=== PATIENT | female | born 1955 | race Caucasian/White ===

== ENCOUNTER 2018-12-14 12:29 | Emergency (ER) | payer MEDICARE, OTHER ==
[~2018-12-14] VITALS: Ht 170.2 cm; Wt 65.9 kg
--- NOTE | 2018-12-14 12:30 | NUR ---
BS 82PT BIB [facility]. PER EMS, PT WAS DRIVING FROM [place] [employer] TO SEE HER (WHO WAS ADMITTED TO THIS HOSPITAL YESTERDAY FOR PACEMAKER PLACEMENT), WHEN SHE EXPERIENCED DIZZINESS ONSET AROUND 1100. PT PULLED OVER TO THE SIDE OF THE ROAD BUT THE DIZZINESS NEVER SUBSIDED SO SHE CALLED EMS. PT STATES HER SYMPTOMS MIGHT BE STRESS-RELATED. VS PER EMS: 160/80, HR 80s SR, 94% ON RA, BS 84. 12-LEAD UNREMARKABLE. PT ARRIVES TO ED A&OX4. POC RV'WD WITH HER. Addendum: 12/14/18 at 1332 by ANA PT WAS DRIVING FROM [place] TO [facility]. STATES SHE FELT LIKE SHE MIGHT PASS OUT.
--- NOTE | 2018-12-14 12:44 | NUR ---
PT AMBULATED TO BR WITHOUT DIFFICULTY. TO XR VIA WC AT THIS TIME.
[2018-12-14] MEDS ORDERED: ESTR0.5T PO (12:53)
[2018-12-14 13:09] LABS: ALANINE AMINOTRANSFERASE 25 U/L (12-78); ALBUMIN 4.1 g/dL (3.4-5.0); ANION GAP 7 mmol/L (5-15); CHLORIDE 111 mmol/L (98-107)
[2018-12-14 13:14] LABS: ALKALINE PHOSPHATASE 63 U/L (45-117); BASOPHILS # (AUTO) 0.03 x10^3/uL (0-0.1); BASOPHILS % (AUTO) 0 % (0-1); BILIRUBIN,TOTAL 0.3 mg/dL (0.2-1.0); EOSINOPHILS # (AUTO) 0.03 x10^3/uL (0-0.4); EOSINOPHILS % (AUTO) 0 % (1-7); LYMPHOCYTES # (AUTO) 1.18 x10^3/uL (1-3.4); LYMPHOCYTES % (AUTO) 12 % (22-44); MD NO; MEAN CORPUSCULAR HEMOGLOBIN 30.7 pg (27.0-34.8); MEAN CORPUSCULAR HGB CONC 33.7 g/dL (32.4-35.8); MEAN CORPUSCULAR VOLUME 91.1 fL (80-100); MEAN PLATELET VOLUME 9.9 fL (7.4-10.4); MONOCYTES # (AUTO) 0.92 x10^3/uL (0.2-0.8); MONOCYTES % (AUTO) 9 % (2-9); NEUTROPHILS # (AUTO) 7.57 x10^3/uL (1.8-6.8); NEUTROPHILS % (AUTO) 78 % (42-75); PLATELET COUNT 288 x10^3/uL (130-400); RED BLOOD COUNT 4.94 x10^6/uL (3.82-5.3); RED CELL DISTRIBUTION WIDTH 13.7 % (9.6-15.2); TOTAL PROTEIN 7.8 g/dL (6.4-8.2); TROPONIN I < 0.015 ng/mL (0.000-0.045)
[2018-12-14 13:30] VITALS: BP 132/81
--- NOTE | 2018-12-14 13:32 | NUR ---
ERP AT BS FOR RE-EVAL.
--- NOTE | 2018-12-14 13:55 | NUR ---
JUICE PROVIDED TO PT. D/C INSTRUCTIONS & F/U APPT RV'WD WITH HER. PT STATES SHE WILL GO UPSTAIRS TO [employer] HER , THEN THEY WILL TAKE A CAB TO GO GET HER CAR. PT AMBULATED WITHOUT DIFFICULTY OUT OF THE ED, STATES SHE FEELS FINE TO DRIVE NOW.
== END 2018-12-14 13:57 | disposition home or self-care (01) ==
LOC: ED 13:50
DX: R55 Syncope and collapse (principal); R53.1 Weakness; R42 Dizziness and giddiness; Z90.710 Acquired absence of both cervix and uterus
CPT/HCPCS: 36415; 71046; 80053; 84484; 85025; 85379; 93005; 99284